=== PATIENT | male | born 1940 | race Caucasian/White ===

== ENCOUNTER 2018-12-08 12:44 | Inpatient (IN) | payer OTHER ==
[~2018-12-08] VITALS: Ht 157.5 cm; Wt 64.4 kg
[~2018-12-08 12:44] MED LIST: ALBUTEROL17 G1; COZAAR25 MG; SIMVASTATIN5 MG; TRAMADOL HCL25 GM
--- NOTE | 2018-12-08 13:16 | NUR ---
PACIENTE REFIERE DIFICULTAD RESPIRATORIA QUE COMENZO EN EL [facility] DE [facility].
--- NOTE | 2018-12-08 13:37 | NUR ---
SE ORIENTA A PACIENTE SOBRE ORDENES MEDICAS. SE ADMINISTRNA MEDICAMENTOS, CANALIZA PACIENTE Y COLECTAN MUESTRAS DE LABORATORIO ORDENADAS BAJO MEDIDAS ASEPTICAS. PENDIENTE A RESULTADOS DE LABORATORIO PARA RE-EVALUACION MEDICA.
--- NOTE | 2018-12-08 23:44 | NUR ---
PT ALERTA Y ORIENTADO X3 ESFERAS EN CAMA CON BARANDAS ELEVADAS Y FRENOS COLOCADOS. HEPARIN LOCK EN ANTEBRAZO KRISTINE PATENTE ZAHRA DE EDEMA Y/O ERITEMA. PT CON TERAPIAS RESPIRATORIAS CONTINUAS. PENDIENTE VISITA DE INTERNISTA, PT EN COMPANIA DE FAMILIAR, TRANQUILO Y SIN DIFICULTAD RESPIRATORIA.
--- NOTE | 2018-12-09 07:38 | NUR ---
SE RECIBE PTE MASCULINO DE 78 YRS ALERTA CONCIENTE Y TRANQUILO EN COMPANIA DE FAMILIAR. PTE EN ESPERA DE MEDICO CONSULTOR. SE MANTIENE ZAHRA DE DOLOR AL MOMENTO;
--- NOTE | 2018-12-09 08:08 | NUR ---
TELEFONO DE EMERGENCIA [phone].
[2018-12-12] MEDS ORDERED: LORATADINE10 MG PO (08:25)
[2018-12-12] MEDS ORDERED: SIMVASTATIN20 MG PO (08:25)
[2018-12-12] MEDS ORDERED: BENZONATATE200 M1 PO (08:25)
[2018-12-12] MEDS ORDERED: FLUCONAZOLE100 MG PO (08:25)
[2018-12-12] MEDS ORDERED: LOSARTAN-HCTZ1 EACH PO (08:25)
[2018-12-12] MEDS ORDERED: FLONASE16 GM NASAL (08:25)
[2018-12-12] MEDS ORDERED: MEDROLPACK PO (08:25)
== END 2018-12-12 14:12 | disposition home or self-care (01) | DRG 192 ==
LOC: ER 12:44 → MEDI 12-09 12:02
PROVIDERS: ADMIT Internal Medicine
PROC: 3E0F7GC Introduction of Other Therapeutic Substance into Respiratory Tract, Via Natural or Artificial Opening (ICD-10-PCS; principal; 2018-12-08)
DX: J44.1 Chronic obstructive pulmonary disease with (acute) exacerbation (principal); R09.02 Hypoxemia; J32.0 Chronic maxillary sinusitis; I10 Essential (primary) hypertension; J31.0 Chronic rhinitis; E78.49 Other hyperlipidemia; N40.0 Benign prostatic hyperplasia without lower urinary tract symptoms

== ENCOUNTER 2019-01-31 10:51 | Emergency (ER) | payer OTHER ==
[~2019-01-31] VITALS: Ht 160 cm; Wt 68.9 kg
[~2019-01-31 10:51] MED LIST changes: +BENZONATATE200 M1 PO; +FLONASE16 GM NASAL; +FLUCONAZOLE100 MG PO; +LORATADINE10 MG PO; +LOSARTAN-HCTZ1 EACH PO; +MEDROLPACK PO; +SIMVASTATIN20 MG PO
== END 2019-01-31 15:05 | disposition home or self-care (01) ==
LOC: ER 10:51
DX: S00.83XA Contusion of other part of head, initial encounter (principal); S13.4XXA Sprain of ligaments of cervical spine, initial encounter; W18.39XA Other fall on same level, initial encounter; Y93.89 Activity, other specified; Y92.89 Other specified places as the place of occurrence of the external cause; Y99.8 Other external cause status